=== PATIENT | male | born 1945 | race Caucasian/White ===

== ENCOUNTER 2018-02-04 09:16 | Emergency (ER) | END 2018-02-04 11:05 | disposition home or self-care (01) ==

== ENCOUNTER 2018-02-06 09:12 | Emergency (ER) | END 2018-02-06 09:56 | disposition home or self-care (01) ==

== ENCOUNTER 2018-02-15 15:30 | Emergency (ER) | END 2018-02-15 17:40 | disposition home or self-care (01) ==